=== PATIENT | female | born 1965 | race Caucasian/White ===

== ENCOUNTER → 2016-07-17 | Outpatient (CLI) | payer MEDICARE ==
[~2016-07-17] MED LIST: ALBU8.5H2 IH; ALBU8.5H6; ALPR0.5T; ALPR0.5T PO; AMIT10TA6; AML2.5T PO; AMOX-355 PO; ASCO500T20; BISA5TAB49; CALC-187; CHOL100045; CYCL-265; DOXY-231 PO; ESCI10TA PO; FERR-74 PO; FLAX10002; FLC1T PO; FLUT1DIS3; FLUT1DIS3 IH; GBPN600T; GUAI600T45 PO; HYDR-3061; HYDR-33; HYDR-3702 PO; LISI1TAB8; LORA-44; LSNP20T PO; METH2.5T PO; METH750T3 PO; PANT40TA3 PO; POTA10TA36 PO; PRED50TA PO; PROM25TA14 PO; SENN1TAB27; TIOT18CA; TRAZ100T92 PO; TRM50T PO; VENL75TA62; VITA100033; ZLP5T
[2016-07-17 12:13] LABS: MEAN CORPUSCULAR HEMOGLOBIN 27.8 PG (26.0-34.0); MEAN CORPUSCULAR VOLUME 90 FL (80-100); MEAN PLATELET VOLUME 8.7 FL (6.0-9.5); PLATELET COUNT 360 10^3uL (150-450); WHITE BLOOD COUNT 6.31 10^3uL (4.0-11.0)
[2016-07-17 12:24] LABS: BAND NEUTROPHILS % 1 % (0-6); EOSINOPHILS % 2 % (0-4); LYMPHOCYTES # 2.7 #; MONOCYTES # 0.1 #; MONOCYTES % 2 % (3-11); RBC MORPH NORMAL (NORMAL); SEGMENTED NEUTROPHILS % 51 % (51-67); TOTAL CELLS COUNTED 100
[2016-07-17 12:47] LABS: ERYTHROCYTE SEDIMENTATION RT* 35 mm/hr (0-21)
[2016-07-17 12:51] LABS: ALBUMIN 4.2 g/dL (3.4-5.0); ANION GAP 18.7 MEQ/L (3-15); CALCULATED IONIZED CALCIUM 3.8 mg/dL (3.8-4.6); TOTAL PROTEIN 7.5 g/dL (6.4-8.5)
== END ==
LOC: RAD 12:03
PROVIDERS: ATTEND Internal Medicine Rheumatology
DX: L40.59 Other psoriatic arthropathy (principal)
CPT/HCPCS: 36415; 80053; 85025; 85652